=== PATIENT | female | born 1980 | race Caucasian/White ===

== ENCOUNTER → 2021-12-31 | Day surgery (SDC) | payer OTHER ==
[~2021-12-31] VITALS: Ht 165.1 cm; Wt 96.2 kg
[~2021-12-31] MED LIST: BUSPIRONE HCL15 MG PO; FIORICET1 EACH PO; WELLBUTRIN75 MG PO
[2021-12-31 11:34] LABS: HCG (URINE) SCREEN NEGATIVE (NEGATIVE)
[2021-12-31 12:17] LABS: HCT 41.4 % (37.0-47.0); HGB 13.2 g/dl (12.5-16.0); MCHC 31.9 g/dL (32.0-36.0); MCV 75.1 fL (78.0-100.0); MPV 11.2 fL (6.0-9.5); RBC 5.51 M/uL (4.20-5.40); RDW 14.9 % (11.5-14.0); WBC 8.7 K/uL (4.0-10.5)
== END | disposition home or self-care (01) ==
LOC: FAS 11:12
PROVIDERS: Obstetrics & Gynecology
DX: N93.9 Abnormal uterine and vaginal bleeding, unspecified (principal); N85.00 Endometrial hyperplasia, unspecified; N89.8 Other specified noninflammatory disorders of vagina; J45.909 Unspecified asthma, uncomplicated; F41.9 Anxiety disorder, unspecified; F32.A Depression, unspecified; F17.200 Nicotine dependence, unspecified, uncomplicated; E66.9 Obesity, unspecified; Z68.37 Body mass index [BMI] 37.0-37.9, adult; Z79.899 Other long term (current) drug therapy; Z88.0 Allergy status to penicillin; Z98.51 Tubal ligation status
CPT/HCPCS: 36415; 71045; 84703; 86850; 86900; 86901; 93005; J2250; J2405; J2704; J3010; J7120

== ENCOUNTER → 2022-03-18 | Day surgery (SDC) | payer OTHER ==
[~2022-03-18] VITALS: Ht 165.1 cm; Wt 96.2 kg
[~2022-03-18] MED LIST changes: +COLACE100 MG PO; +IBUPROFEN600 MG PO; +PERCOCET 5-3251 EACH PO; +PHENERGAN12.5 M1 PO; +ZOFRAN PO
[2022-03-18 08:26] LABS: HCG (URINE) SCREEN NEGATIVE (NEGATIVE)
[2022-03-18 08:51] LABS: HCT 41.1 % (37.0-47.0); HGB 13.1 g/dl (12.5-16.0); MCH 23.8 pg (25.0-31.0); MCHC 31.9 g/dL (32.0-36.0); MCV 74.6 fL (78.0-100.0); RBC 5.51 M/uL (4.20-5.40); RDW 14.6 % (11.5-14.0); WBC 9.5 K/uL (4.0-10.5)
== END | disposition home or self-care (01) ==
LOC: FAS 08:13
PROVIDERS: Obstetrics & Gynecology
DX: N73.6 Female pelvic peritoneal adhesions (postinfective) (principal); N83.8 Other noninflammatory disorders of ovary, fallopian tube and broad ligament; N70.11 Chronic salpingitis; N80.0 Endometriosis of uterus; N72 Inflammatory disease of cervix uteri; N87.9 Dysplasia of cervix uteri, unspecified; J45.909 Unspecified asthma, uncomplicated; E66.9 Obesity, unspecified; Z88.0 Allergy status to penicillin; Z72.0 Tobacco use
CPT/HCPCS: 36415; 84703; 86850; 86900; 86901; J1100; J1580; J1885; J2250; J2405; J2704; J2710; J3010; J7050; J7120